=== PATIENT | male | born 1975 | race Caucasian/White ===

== ENCOUNTER 2017-10-03 18:40 | Emergency (ER) | payer SELFPAY ==
[2017-10-03 18:46] VITALS: BP 108/85; PULSE 112; RESP 18; TEMP 98.8; O2SAT 100
--- NOTE | 2017-10-03 19:02 | EDPHY ---
H & P Time Seen by Provider: 10/03/17 18:49 HPI/ROS: CHIEF COMPLAINT: "I want to stop using meth and heroin" HISTORY OF PRESENT ILLNESS: 42-year-old homeless male walked to the emergency department after using heroin and methamphetamine less than 3 hr ago. He arrived here from [place] earlier today. History of schizophrenia off of medications for 6 months but no suicidal homicidal ideation. Positive hallucination however these hallucinations are not telling him to hurt himself or hurt anybody else. Denies complaints of physical pain. He is worried that he will start withdrawing. PHYSICAL EXAM (Prior to examination, patient consented to physical exam, hands were washed and my usual and customary physical exam procedures followed) 1) GENERAL: Well-developed, well-nourished, alert and oriented. Appears anxious. Pacing. 2) HEAD: Normocephalic 3) HEENT: sclera anicteric 4) LUNGS: Breathing comfortably. Smoking Status: Current every day smoker Constitutional: Initial Vital Signs Temperature (C) 37.1 C 10/03/17 18:43 Heart Rate 112 H 10/03/17 18:43 Respiratory Rate 18 10/03/17 18:43 Blood Pressure 108/85 H 10/03/17 18:43 O2 Sat (%) 100 10/03/17 18:43 O2 Delivery Mode Room Air Allergies/Adverse Reactions: Penicillins Allergy (Verified 10/03/17 18:42) Home Medications: Medication Instructions Recorded NK [No Known Home Meds] 10/03/17 MDM/Departure - MDM ED Course/Re-evaluation: This patient does not endorse suicidal or homicidal ideation. He has requested assistance with his mental health issues. I do not think he meets criteria for an M1 hold. Have offered to send him to the mental health walk-in clinic which he is agreeable with, sent via taxi. Care of patient under supervision of secondary supervising physician Dr Goodwin. - Depart Disposition: Home, Routine, Self-Care Clinical Impression: Methamphetamine abuse, Heroin abuse Condition: Good Instructions: Methamphetamine (By mouth), Narcotic Abuse (ED), Methamphetamine Abuse (ED) Referrals: [facility],. [Clinic] - As per Instructions
== END 2017-10-03 19:30 | disposition home or self-care (01) ==
DX: F15.10 Other stimulant abuse, uncomplicated (principal); F11.10 Opioid abuse, uncomplicated; F17.200 Nicotine dependence, unspecified, uncomplicated

== ENCOUNTER 2017-11-14 16:01 | Emergency (ER) | payer MEDICAID ==
[2017-11-14 16:06] VITALS: RESP 16
[2017-11-14] MEDS ORDERED: HALOPERIDOL 5 MG TAB PO ONE (16:21)
--- NOTE | 2017-11-14 16:27 | EDPHY ---
H & P Smoking Status: Heavy smoker Time Seen by Provider: 11/14/17 16:10 HPI/ROS: HPI Hearing voices. 42-year-old male on foot. He has a history of paranoid schizophrenia. He reports that he is supposed to take 5 mg of Haldol with 150 mg of Zoloft daily. He has not been on this medication in some time. He is complaining of hearing voices. He describes these voices is constant white noise in the back of his head. The voices are blaming him for his father's and telling him that he is worthless. He is also having suicidal thoughts. ROS: Constitutional: No fever, no chills. No weakness. Eyes: No discharge. No changes in vision. ENT: No sore throat. No nasal congestion or rhinorrhea. Respiratory: No cough. No shortness of breath. Cardiac: No chest pain, no palpitations. Gastrointestinal: No abdominal pain, no vomiting, no diarrhea. Genitourinary: No hematuria. No dysuria or increased frequency with urination. Musculoskeletal: No back pain. No neck pain. No myalgias or arthralgias. Skin: No rashes. Neurological: No headache. No focal weakness or altered sensation. Past medical history: Schizophrenia, methamphetamine abuse, heroin abuse. Social history: Denies drug abuse today. No alcohol. Here by himself. Physical Exam: General Appearance: Alert, mildly anxious with pressured speech. This patient is responding to questions appropriately and in full sentences. This patient appears well-hydrated and well-nourished. Eyes: Pupils equal and round no pallor or injection. No lid edema, erythema or injection. Respiratory: There are no retractions, lungs are clear to auscultation with good air movement bilaterally. Cardiovascular: Regular rate and rhythm. No murmur. Gastrointestinal: Abdomen is soft and nontender, no masses, bowel sounds normal. No focal tenderness at McBurney's point. No Mitchell sign. Neurological: Motor sensory function is grossly intact. Cranial nerves are normal. Gait is normal. Skin: Warm and dry, no rashes. Musculoskeletal: Neck is supple and nontender. Extremities are symmetrical. All joints range without pain or impingement. Psychiatric: No agitation. Flat affect. Database: EKG: Imaging: Procedures: Emergency department course: Signs reviewed. Appropriate blood work sent. Behavioral Health notified. Patient given 150 mg of Zoloft and 5 mg of Haldol orally. 8:15 p.m., the patient has been medically cleared. He is awaiting behavioral health evaluation. Blood work in tox screens reviewed and are unremarkable. 9:00 p.m., the patient still awaits behavioral health evaluation. Care turned over to Dr. Jocelyne Sparks at this time Differential Diagnosis: The differential diagnosis on this patient includes but is not limited to schizophrenia, noncompliance with psychiatric medications, substance abuse, suicidal ideation. This represents a partial list of diagnoses considered. These considerations are based on history, physical exam, past history, reassessment and diagnostic testing. (Arabella Goodwin) Constitutional: Initial Vital Signs Temperature (C) 36.5 C 11/14/17 16:05 Heart Rate 90 11/14/17 16:05 Respiratory Rate 16 11/14/17 16:05 Blood Pressure 142/90 H 11/14/17 16:05 O2 Sat (%) 95 11/14/17 16:05 O2 Delivery Mode Room Air Allergies/Adverse Reactions: Penicillins Allergy (Verified 11/14/17 16:04) Home Medications: Medication Instructions Recorded NK [No Known Home Meds] 10/03/17 Medical Decision Making ED Course/Re-evaluation: 9:00 p.m.-I assumed care of this patient at shift change. 9:30 p.m.-[facility] has evaluated this patient and are planning to place him in a CSU. (Natalie Sparks) Patient signed over to Dr. Reina at 7am shift-change. Here with paranoid schizophrenia. (Yusuf Wynn) Patient has remained stable. He has been accepted at [facility] CSU by Dr. Wes ndiaye. (Ramon Reina) - Data Points Laboratory Results: Laboratory Results 11/14/17 16:45 11/14/17 16:45 Medications Given: Sertraline HCl (Zoloft) 150 mg PO DAILY LACHELLE Stop: 05/13/18 16:29 Last Admin: 11/14/17 16:32 Dose: 150 mg Discontinued Medications Haloperidol (Haldol) 5 mg PO EDNOW ONE Stop: 11/14/17 16:22 Last Admin: 11/14/17 16:54 Dose: 5 mg Departure - Departure Disposition: Other Psych, Not Alyssa Clinical Impression: Schizophrenia, Noncompliance with medication regimen Condition: Fair Referrals: NONE *PRIMARY CARE P,. [Primary Care Provider] - As per Instructions
[2017-11-14] MEDS ORDERED: SERTRALINE HCL 50 MG TAB PO SCH (16:30)
[2017-11-14 17:12] LABS: PLATELET COUNT 320 10^3/uL (150-400)
[2017-11-15 09:48] VITALS: BP 122/74; PULSE 90; TEMP 98.6; O2SAT 95
== END 2017-11-15 14:42 ==
DX: F20.9 Schizophrenia, unspecified (principal); F17.200 Nicotine dependence, unspecified, uncomplicated; Z91.14 Patient's other noncompliance with medication regimen
CPT/HCPCS: 80305; G0480

== ENCOUNTER 2019-01-04 22:38 | Emergency (ER) | payer MEDICAID ==
--- NOTE | 2019-01-04 22:48 | EDPHY ---
H & P Stated Complaint: Paranoid, off meds, "they're saying they're after me" Source: Patient - Personal History Current Tetanus Diphtheria and Acellular Pertussis (TDAP): No - Medical/Surgical History Hx Asthma: No Hx Chronic Respiratory Disease: No Hx Diabetes: No Hx Cardiac Disease: No Hx Renal Disease: No Hx Cirrhosis: No Hx Alcoholism: No Hx HIV/AIDS: No Hx Splenectomy or Spleen Trauma: No Other PMH: drug use/depression, paranoid schizophrenia, Hep C, Gallstones - Social History Smoking Status: Heavy smoker Time Seen by Provider: 01/04/19 22:47 HPI/ROS: HPI CHIEF COMPLAINT: Paranoia. HISTORY OF PRESENT ILLNESS: Patient is a 43-year-old male, he has a history of paranoid schizophrenia, presents to the emergency room stating he is feeling very paranoid. He states people or on roofs watching him, additionally sees same car going around him over and over again. He denies any suicidal ideation or homicidal ideation. However reports that he has been off his medications for the past month. He reports to me that he typically lives in [facility]. However he left there month ago due to being paranoid he states he has a friend here in [place] that he has been staying with. He Had increasing paranoia tonight and this is what prompted to come to the emergency room. He arrives to the emergency room in no acute distress without any significant complaints other than feeling paranoid. He states that he typically takes Zyprexa and has been off of this for a month. Past Medical History: Paranoid schizophrenia. Hepatitis-C. Kidney stones. Past Surgical History: Denies recent surgical history Social History: Smokes tobacco, denies alcohol or drugs. Family History: Noncontributory ROS REVIEW OF SYSTEMS: 10 Systems were reviewed and negative with the exception of the elements mentioned in the history of present illness. Exam Constitutional appears well nontoxic no acute distress triage nursing summary reviewed, vital signs reviewed, awake/alert. Eyes normal conjunctivae and sclera, EOMI, PERRLA. HENT normal inspection, atraumatic, moist mucus membranes, no epistaxis, neck supple/ no meningismus, no raccoon eyes. Respiratory clear to auscultation bilaterally, normal breath sounds, no respiratory distress, no wheezing. Cardiovascular rate normal, regular rhythm, no murmur, no edema, distal pulses normal. Gastrointestinal soft, non-tender, no rebound, no guarding, normal bowel sounds, no distension, no pulsatile mass. Genitourinary no CVA tenderness. Musculoskeletal no midline vertebral tenderness, full range of motion, no calf swelling, no tenderness of extremities, no meningismus, good pulses, neurovascularly intact. Skin pink, warm, & dry, no rash, skin atraumatic. Neurologic awake, alert and oriented x 3, AAOx3, moves all 4 extremities equally, motor intact, sensory intact, CN II-XII intact, normal cerebellar, normal vision, normal speech. Psychiatric paranoid. Heme/Lymph/Immune no lymphadenopathy. Differential Diagnosis: Includes but is not limited to in a particular order acute paranoia, schizophrenia, sydni, depression, drug intoxication, methamphetamine abuse Medical Decision Making: Plan for this patient blood draw for medical clearance and drug screen, Zyprexa 10 mg p. O., patient is voluntary. He will need mental health evaluation this morning. Re-evaluation: 0530: Patient is sleeping. No acute distress. Patient receive Zyprexa earlier. 7:00 a.m. patient is voluntary. He is having paranoia. He will need mental health evaluation this morning. Signed over at 7:[address] Hawkins. ( [facility]) Constitutional: Initial Vital Signs Temperature (C) 36.8 C 01/04/19 22:44 Heart Rate 97 01/04/19 22:44 Respiratory Rate 18 01/04/19 22:44 Blood Pressure 134/89 H 01/04/19 22:44 O2 Sat (%) 97 01/04/19 22:44 O2 Delivery Mode Room Air Allergies/Adverse Reactions: Penicillins Allergy (Verified 01/04/19 22:43) Home Medications: Medication Instructions Recorded Lorazepam 01/04/19 Prozac 10 MG (*) 01/04/19 OLANZapine [Zyprexa] 10 mg PO DAILY #30 tablet 01/05/19 Medical Decision Making ED Course/Re-evaluation: I assumed care of the patient at 0700 The patient was seen by [facility]. He currently contracts for safety and does not meet criteria for inpatient psychiatric hospitalization. The patient tells me he typically takes 10 mg Zyprexa a day. The patient will be given a refill of this prescription medication. He is also given resources with [facility]. The patient is discharged home with customary aftercare instructions and return precautions. (Javad Hawkins) - Data Points Laboratory Results: Laboratory Results 01/04/19 23:31 01/04/19 23:31 01/04/19 01/04/19 01/04/19 23:31 23:31 23:10 WBC 14.22 10^3/uL H 10^3/uL (3.80-9.50) RBC 5.28 10^6/uL 10^6/uL (4.40-6.38) Hgb 16.0 g/dL g/dL (13.7-17.5) Hct 44.6 % % (40.0-51.0) MCV 84.5 fL fL (81.5-99.8) MCH 30.3 pg pg (27.9-34.1) MCHC 35.9 g/dL g/dL (32.4-36.7) RDW 15.6 % H % (11.5-15.2) Plt Count 318 10^3/uL 10^3/uL (150-400) MPV 9.2 fL fL (8.7-11.7) Neut % (Auto) 69.2 % % (39.3-74.2) Lymph % (Auto) 23.0 % % (15.0-45.0) [place] % (Auto) 6.5 % % (4.5-13.0) Eos % (Auto) 0.3 % L % (0.6-7.6) Baso % (Auto) 0.6 % % (0.3-1.7) Nucleat RBC Rel Count 0.0 % % (0.0-0.2) Absolute Neuts (auto) 9.85 10^3/uL H 10^3/uL (1.70-6.50) Absolute Lymphs (auto) 3.27 10^3/uL H 10^3/uL (1.00-3.00) Absolute Monos (auto) 0.92 10^3/uL H 10^3/uL (0.30-0.80) Absolute Eos (auto) 0.04 10^3/uL 10^3/uL (0.03-0.40) Absolute Basos (auto) 0.08 10^3/uL 10^3/uL (0.02-0.10) Absolute Nucleated RBC 0.00 10^3/uL 10^3/uL (0-0.01) Immature Gran % 0.4 % % (0.0-1.1) Immature Gran # 0.06 10^3/uL 10^3/uL (0.00-0.10) Turbidity Sodium 143 mEq/L mEq/L (135-145) Potassium 4.1 mEq/L mEq/L (3.5-5.2) Chloride 110 mEq/L mEq/L (97-110) Carbon Dioxide 21 mEq/l L mEq/l (22-31) Anion Gap 12 mEq/L mEq/L (6-14) BUN 12 mg/dL mg/dL (7-23) Creatinine 0.8 mg/dL mg/dL (0.7-1.3) Estimated GFR > 60 Glucose 81 mg/dL mg/dL (70-100) Calcium 9.3 mg/dL mg/dL (8.5-10.4) Icterus Index Specimen Hemolysis Salicylates < 1.0 mg/dL L mg/dL (2.0-20.0) Urine Opiates Screen NEGATIVE (NEGATIVE) Acetaminophen < 10 mcg/mL L mcg/mL (10-30) Urine Barbiturates NEGATIVE (NEGATIVE) Ur Phencyclidine Scrn NEGATIVE (NEGATIVE) Ur Amphetamine Screen NEGATIVE (NEGATIVE) U Benzodiazepines Scrn NEGATIVE (NEGATIVE) Urine Cocaine Screen NEGATIVE (NEGATIVE) U Marijuana (THC) Screen NEGATIVE (NEGATIVE) Ethyl Alcohol < 10 mg/dL mg/dL (0-10) 01/04/19 01/04/19 23:00 23:00 WBC REJ RBC REJ Hgb REJ Hct REJ MCV REJ MCH REJ MCHC REJ RDW REJ Plt Count REJ MPV REJ Neut % (Auto) REJ Lymph % (Auto) REJ [place] % (Auto) REJ Eos % (Auto) REJ Baso % (Auto) REJ Nucleat RBC Rel Count REJ Absolute Neuts (auto) REJ Absolute Lymphs (auto) REJ Absolute Monos (auto) REJ Absolute Eos (auto) REJ Absolute Basos (auto) REJ Absolute Nucleated RBC REJ Immature Gran % REJ Immature Gran # REJ Turbidity REJ Sodium REJ Potassium REJ Chloride REJ Carbon Dioxide REJ Anion Gap REJ BUN REJ Creatinine REJ Estimated GFR REJ Glucose REJ Calcium REJ Icterus Index REJ Specimen Hemolysis REJ Salicylates REJ Urine Opiates Screen Acetaminophen REJ Urine Barbiturates Ur Phencyclidine Scrn Ur Amphetamine Screen U Benzodiazepines Scrn Urine Cocaine Screen U Marijuana (THC) Screen Ethyl Alcohol REJ Medications Given: Discontinued Medications Olanzapine (Olanzapine) 10 mg PO ONCE ONE Stop: 01/04/19 22:53 Last Admin: 01/04/19 23:13 Dose: 10 mg Departure - Departure Disposition: Home, Routine, Self-Care Clinical Impression: Paranoid schizophrenia Condition: Good Instructions: Schizophrenia (ED) Additional Instructions: 1. Please follow-up with the mental health resources provided in the ED today. 2. [facility] does operate a 24/ psychiatric crisis unit located at [address] [place] [address]. The telephone number for the 24 hour crisis center is [phone]. 3. Please return to the ED if you are feeling suicidal, having thoughts of harming yourself/others or should you feel unsafe or have worsening symptoms. Please go to the walk-in clinic at [facility]. They can provide you with assistance in getting your medications filled. Referrals: NONE *PRIMARY CARE P,. [Primary Care Provider] - As per Instructions Prescriptions: OLANZapine [Zyprexa] 10 mg PO DAILY #30 tablet
[2019-01-04] MEDS ORDERED: OLANZapine 5 MG TAB PO ONE (22:52)
[2019-01-04 23:43] LABS: PLATELET COUNT 318 10^3/uL (150-400)
[2019-01-05 08:01] VITALS: BP 101/68
--- NOTE | 2019-01-05 08:17 | ASMTLCPROG ---
Notes Note: Notes: Pt in ED on voluntary bsis, recently came back to [place] from [place] about a month ago. Pt stated he has been off his medications and wanting to get back on Zyprexa. Pt was administered Zyprexa 10 mg po at 2213 hrs last night. Pt denies suicidal/homicidal ideation. Provided pt with literature to follow up with [facility] and [facility]. Date Signed: 01/05/2019 08:16 AM Electronically Signed By:Nirav Addison
== END 2019-01-05 08:30 | disposition home or self-care (01) ==
DX: F20.0 Paranoid schizophrenia (principal)
CPT/HCPCS: 80305; G0480